=== PATIENT | male | born 1965 | race Caucasian/White ===

== ENCOUNTER → 2016-05-20 | Outpatient (CLI) | payer OTHER ==
[~2016-05-20] MED LIST: KEFLEX 500MG.500 MG PO
--- NOTE | 2016-05-20 20:08 | RADIOLOGY REPORT PS360 ---
US RUQ-(ABD LTD)1ORGAN/QUAD/FU ORDERING PHYSICIAN : Nicky Verduzco APRN PATIENT AGE: 50 years GENDER: Male INDICATION: ABD PAIN upper abdominal pain 1 month nodularity seen. TECHNIQUE: ] Quadrant ultrasound COMPARISON: Previous ultrasound right upper quadrant from 2010 FINDINGS Pancreas unremarkable. There are visualization. Liver. Again slightly coarse architecture but no focal lesions. Common duct normal diameter less than 3 mm at hilum of liver. Gallbladder. No gallstones. Minimal sludge and borderline wall thickening measured 3.7 mm. If biliary symptoms or RUQ pain or symptoms consider HIDA scan Right kidney. 9.9 cm in length. Appears normal. Cortex well-maintained. IMPRESSION: --------- Gallbladder. No gallstones. Minimal sludge. Borderline /mild wall thickening.. Consider HIDA scan Common duct normal. Slightly coarse echogenic pattern the liver, again seen similar to 2010... Warrants correlation with LFTs
== END ==
LOC: RAD 08:30
DX: R10.9 Unspecified abdominal pain (principal); J34.89 Other specified disorders of nose and nasal sinuses